=== PATIENT | female | born 1955 | race African-American/Black ===

== ENCOUNTER 2018-06-18 11:09 | Emergency (ER) | payer OTHER ==
[2018-06-18 11:17] VITALS: BP 145/72; PULSE 69; TEMP 98; BMI 27.4
--- NOTE | 2018-06-18 12:08 | PDOC ---
History of Present Illness - General Chief Complaint: Injury Stated Complaint: INJURY Time Seen by Provider: 06/18/18 11:33 History Source: Patient Exam Limitations: No Limitations - History of Present Illness Initial Comments: 06/18/18 11:51 HISTORY OF PRESENT ILLNESS: This is a 62-year-old woman past medical history of hypertension and migraines who presents emergency Department with sacral pain status post fall on 06/17. 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 Patient was immediately ambulatory but presented today for evaluation as the pain is still an aching. She reports the pain is 6/10. Patient is refusing pain medication at this time as she has been taking Motrin to help relieve the pain. She denies any saddle anesthesia, urinary retention, incontinence of bladder or bowel, foot drop, IV drug use, cancer. No recent travel or sick contacts. PAST MEDICAL HISTORY: HTN, migraines SURGICAL HISTORY: Denies ALLERGIES: codeine REVIEW OF SYSTEMS General/Constitutional: Denies fever or chills. Denies weakness, weight change. HEENT: Denies change in vision. Denies ear pain or discharge. Denies sore throat. Cardiovascular: Denies chest pain or shortness of breath. Respiratory: Denies cough, wheezing, or hemoptysis. Gastrointestinal: Denies nausea, vomiting, diarrhea or constipation. Denies rectal bleeding. Genitourinary: Denies dysuria, frequency, or change in urination. Musculoskeletal: Sacral pain. Denies neck or back pain. Skin and breasts: Denies rash or easy bruising. Neurologic: Denies headache, vertigo, loss of consciousness, or loss of sensation. Psychiatric: Denies depression or anxiety. Endocrine: Denies increased thirst. Denies abnormal weight change. Hematologic/Lymphatic: Denies anemia, easy bleeding, or history of blood clots. Allergic/Immunologic: Denies hives or skin allergy. Denies latex allergy. PHYSICAL EXAM General Appearance: Well-appearing, appropriately dressed. No apparent distress , no intoxication. HEENT: EOMI, PERRLA, normal ENT inspection, normal voice, TMs normal, pharynx normal. No conjunctival pallor. No photophobia, scleral icterus. Neck: Supple. Trachea midline. No tenderness, rigidity, carotid bruit, stridor , lymphadenopathy, or thyromegaly. Respiratory/Chest: Lungs CTAB. No shortness of breath, chest tenderness, respiratory distress, accessory muscle use. No crackles, rales, rhonchi, stridor , wheezing, dullness Cardiovascular: RRR. S1, S2. No JVD, murmur, bradycardia, tachycardia. Vascular Pulses: Dorsalis-Pedis (R): 2+, Dorsalis-Pedis (L): 2+ Gastrointestinal/Abdominal: Normal bowel sounds. Abdomen soft, non-distended. No tenderness or rebound tenderness. No organomegaly, pulsatile mass, guarding, hernia, hepatomegaly, splenomegaly. Lymphatic: No adenopathy, tenderness. Musculoskeletal/Extremities: Normal inspection. FROM of all extremities, normal capillary refill. Pelvis Stable. No CVA tenderness. No tenderness to extremities, pedal edema, swelling, erythema or deformity. TTP over sacrum. No palpable deformities, crepitus or step-offs. Integumentary: Appropriate color, dry, warm. 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 Fully oriented, alert. Appropriate mood/affect. Motor strength 5/5. No appreciable EOM palsy, facial droop or sensory deficit. Past History - Past Medical History Allergies/Adverse Reactions: Allergies Allergy/AdvReac Type Severity Reaction Status Date / Time codeine Allergy Verified 06/18/18 11:15 Home Medications: Ambulatory Orders Losartan Potassium [Cozaar -] 25 mg PO DAILY 12/04/14 Aspirin 81 mg PO DAILY 06/18/18 COPD: No HTN: Yes - Surgical History Abdominal Surgery: Yes - Suicide/Smoking/Psychosocial Hx Smoking History: Never smoked Number of Cigarettes Smoked Daily: 0 Hx Alcohol Use: No Drug/Substance Use Hx: No *Physical Exam - Vital Signs Last Vital Signs Temp Pulse Resp BP Pulse Ox 98 F 69 16 145/72 98 06/18/18 11:16 06/18/18 11:16 06/18/18 11:16 06/18/18 11:16 06/18/18 11:16 Medical Decision Making - Medical Decision Making 06/18/18 12:08 A/P: 62-year-old woman with sacral pain for one day Tenderness to palpation over the sacrum. No palpable deformities, crepitus or step-offs noted Neurologic exam is within normal limits rectal exam has been deferred. X-rays, reassess 06/18/18 12:33 X-rays read by Dr. Hines: No acute bony abnormalities are seen within the limitations of examination. I'll discharge the patient home to follow-up with her primary doctor. I discussed the physical exam findings, ancillary test results and final diagnoses with the patient. I answered all of the patient's questions. The patient was satisfied with the care received and felt comfortable with the discharge plan and treatment plan. The patient will call their primary care physician within 24 hours to arrange follow-up and will return to the Emergency Department with any new, persistent or worsening symptoms. *DC/Admit/Observation/Transfer Diagnosis at time of Disposition: Sacral contusion Qualifiers: Encounter type: initial encounter Qualified Code(s): S30.0XXA - Contusion of lower back and pelvis, initial encounter - Discharge Dispostion Disposition: HOME Condition at time of disposition: Stable Decision to Admit order: No - Referrals Referrals: Meliza Shell MD [Primary Care Provider] - - Patient Instructions Additional Instructions: You may purchase a donut cushion at her local pharmacy for relief of pain. Take Tylenol or Motrin as directed by manufacturers instructions for relief of pain. Return to emergency department for loss of control of her bladder or bowels, numbness or tingling to your rectum or genitals or any other concerns. Thank you very much for choosing us to provide your emergent health care needs - Post Discharge Activity
== END 2018-06-18 12:35 | disposition home or self-care (01) ==
LOC: JERFT 11:09
DX: S30.0XXA Contusion of lower back and pelvis, initial encounter (principal); W07.XXXA Fall from chair, initial encounter; Y93.89 Activity, other specified; Y92.238 Other place in hospital as the place of occurrence of the external cause; Y99.0 Civilian activity done for income or pay; I10 Essential (primary) hypertension; Z86.69 Personal history of other diseases of the nervous system and sense organs
CPT/HCPCS: 72220-TC-FY; 99281-25

== ENCOUNTER 2021-03-13 21:21 | Emergency (ER) | payer OTHER ==
[2021-03-13 21:41] VITALS: TEMP 98.6; BMI 32.9
[2021-03-13] MEDS ORDERED: ACETAMINOPHEN 1000 MG/100 ML VIAL (NON FORMULARY) IVPB ONE (22:47)
[2021-03-14] MEDS ORDERED: ACETAMINOPHEN 500 MG TABLET (FP) PO ONE (00:58)
[2021-03-14] MEDS ORDERED: ACETAMINOPHEN 325 MG TABLET (FP) ONE (01:45)
[2021-03-14 02:57] VITALS: BP 126/82; PULSE 73
== END 2021-03-14 02:57 | disposition home or self-care (01) ==
LOC: JER 21:21
DX: M50.30 Other cervical disc degeneration, unspecified cervical region (principal); S32.000A Wedge compression fracture of unspecified lumbar vertebra, initial encounter for closed fracture
CPT/HCPCS: 72125-TC; 72131-TC; 73110-TC-LT-FY; 73130-TC-LT-FY; 99285-25

== ENCOUNTER 2022-03-20 04:21 | Day surgery (SDC) | payer OTHER ==
[2022-03-18 09:37] VITALS: BMI 32.1
[2022-03-20] MEDS ORDERED: KETAMINE HCL 500 MG/10 ML VIAL ONE (09:24)
[2022-03-20] MEDS ORDERED: FENTANYL CITRATE/PF 50 MCG/ML VIAL ONE (09:24)
[2022-03-20] MEDS ORDERED: MIDAZOLAM HCL 2 MG/2 ML SINGLE DOSE VIAL ONE (09:25)
[2022-03-20 10:34] VITALS: TEMP 98
[2022-03-20 11:49] VITALS: PULSE 57
[2022-03-20 13:00] VITALS: BP 126/70
== END 2022-03-20 13:10 | disposition home or self-care (01) ==
LOC: JASU-ENDO 04:21
PROVIDERS: ATTEND Internal Medicine Gastroenterology
PROC: 0DB78ZX Excision of Stomach, Pylorus, Via Natural or Artificial Opening Endoscopic, Diagnostic (ICD-10-PCS; 2022-03-20)
PROC: 0DBK8ZX Excision of Ascending Colon, Via Natural or Artificial Opening Endoscopic, Diagnostic (ICD-10-PCS; principal; 2022-03-20 09:30)
DX: Z12.11 Encounter for screening for malignant neoplasm of colon (principal); D12.2 Benign neoplasm of ascending colon; Z86.010 Personal history of colon polyps; K29.50 Unspecified chronic gastritis without bleeding; K21.9 Gastro-esophageal reflux disease without esophagitis
CPT/HCPCS: 82962; 88305-TC; 88342-TC